=== PATIENT | male | born 1970 | race Two or more races ===

== ENCOUNTER 2016-10-25 23:38 | Observation (INO) | payer OTHER ==
[~2016-10-25] VITALS: Ht 175.3 cm; Wt 89.8 kg
--- NOTE | 2016-10-25 23:47 | NUR ---
DR OLIVER AT BEDSIDE FOR MSE
--- NOTE | 2016-10-25 23:47 | NUR ---
RECEIVED 46 Y/O M BIB [facility] FROM [facility] FOR EVAL OF CHEST PAIN STARTING AT 1800 LAST NIGHT; NON-PROVOKED, NON-RADIATING, SUB STERNAL CHEST TIGHTNESS AND RATES 6/10 AT THIS TIME. PT STATES FACE FEELS NUMB. RESP E/U AT THIS TIME, NAD NOTED. HOME AID AND PULSE OX IN PLACE.
--- NOTE | 2016-10-25 23:55 | NUR ---
NITRO PASTE APPLIED TO L UPPER CHEST ORDERED.
[2016-10-26] VITALS (7 sets, daily range): BP systolic 109–159; BP diastolic 72–98
--- NOTE | 2016-10-26 00:03 | NUR ---
AFTER NITRO ADMINISTRATION PT STATES PAIN IS "STARTING TO RELAX NOW". RATES 01/10.
--- NOTE | 2016-10-26 00:04 | NUR ---
CXR IN PROGRESS AT BEDSIDE.
[2016-10-26 00:10] LABS: BASOPHIL % 0.8 % (0-2); PLATELET COUNT 221 x10^3mcL (130-400)
[2016-10-26 00:12] LABS: RED CELL DISTRIBUTION WIDTH 16.4 % (11.5-14.5)
[2016-10-26 00:22] LABS: CALCIUM 8.3 mg/dL (8.5-10.1); CARBON DIOXIDE 27.8 mmol/L (21-32); CHLORIDE SERUM 105 mmol/L (98-107); CREATININE SERUM 1.1 mg/dL (0.7-1.3); GFR1 > 60 mL/min; GLUCOSE SERUM 140 mg/dL (74-106); POTASSIUM SERUM 3.8 mmol/L (3.5-5.1); SODIUM SERUM 141 mmol/L (136-145)
[2016-10-26 00:27] LABS: ALBUMIN 3.5 g/dL (3.4-5.0); ALKALINE PHOSPHATASE 79 U/L (46-116); ALT/SGPT 33 U/L (16-63); AST/SGOT 19 U/L (15-37); BILIRUBIN TOTAL 0.5 mg/dL (0.20-1.00); TOTAL PROTEIN, SERUM 6.8 g/dL (6.4-8.2)
[2016-10-26] MEDS ORDERED: CAL-GEST500 MG PO (01:23)
[2016-10-26] MEDS ORDERED: GOOD SENSE OMEP20 MG PO (01:24)
[2016-10-26] MEDS ORDERED: HYD25 PO (01:24)
[2016-10-26] MEDS ORDERED: LOPERAMIDE HCL2 MG PO (01:24)
[2016-10-26] MEDS ORDERED: BENTYL20 MG PO (01:24)
[2016-10-26] MEDS ORDERED: VASOTEC20 MG PO (01:25)
[2016-10-26] MEDS ORDERED: AMITRIPTYLINE H10 MG PO (01:25)
[2016-10-26] MEDS ORDERED: ASPIR 8181 MG PO (01:25)
[2016-10-26] MEDS ORDERED: CANASA1000 MG RC (01:25)
[2016-10-26] MEDS ORDERED: ATORVASTATIN CA40 M1 PO (01:25)
[2016-10-26] MEDS ORDERED: BUSPIRONE HCL15 MG PO (01:26)
--- NOTE | 2016-10-26 01:48 | NUR ---
REPORT GIVEN TO JARRET FOR FURTHER CARE OF PT.
[2016-10-26 02:16] LABS: T3 TOTAL 1.03 ng/mL
[2016-10-26 02:30] LABS: FREE T4 0.03 ng/dL (0.76-1.46); FREE THYROXINE INDEX 1.5 ug/dL (1.4-4.5); T4(THYROXINE) 2.6 ug/dL (4.7-13.3)
--- NOTE | 2016-10-26 02:45 | NUR ---
RECEIVED PT FROM ED VIA [facility] ACCOMPANIED BY RN. PT STATES REDUCED CHEST PAIN SINCE RECEIVING MEDICATION FROM ER. A&O X4. SHACKLES ON CASEY ANKLES AND RIGHT WRIST. SKIN AND CIRCULATION WNL. RESPIRATION EVEN AND UNLABORED ON ROOM AIR. OFFICERS AT BEDSIDE X2.
[2016-10-26 06:04] LABS: CHOLESTEROL/HDL RATIO 5.3; MAGNESIUM 2.1 mg/dL (1.8-2.4); PHOSPHOROUS 3.4 mg/dL (2.5-4.9)
--- NOTE | 2016-10-26 07:02 | NUR ---
PT SLEEPING. NO DISTRESS NOTED. SAFETY MEASURES IN PLACE. WILL ENDORSE CONTINUITY OF CARE TO DAY SHIFT RN.
--- NOTE | 2016-10-26 07:32 | NUR ---
PT SEEN REST ON BED AND READY FOR BREAKFAST. TWO GUARDS AT BED SIDE. PT REPORTED CHEST PAIN GETTING BETTER, WITHIN TOLERANCE. PT BREATHING ON RA, EVEN, UNLABORED. IV SITE PATENT, INTACT. IVF INFUSING WELL.
[2016-10-26 10:31] LABS: microscopic required? NO
[2016-10-26 11:01] LABS: AMPHETAMINE QUAL UR NONE DETECTED (NEG <=1000); UA SPECIFIC GRAVITY >=1.030 (1.005-1.035); urine erythrocyte NEGATIVE (NEGATIVE)
--- NOTE | 2016-10-26 18:16 | NUR ---
PT IS EATING DINNER, TWO GUARDS AT BED SIDE. PT NO COMPLAIN OF CHEST PAIN AT THIS TIME. OVERDAY, HE DIDN'T REQUEST PAIN MED FOR CHEST PAIN. PT BREATHING ON RA, EVEN, UNLABORED. IV SITE PATENT, INTACT. IVF INFUSING WELL.
--- NOTE | 2016-10-26 20:06 | NUR ---
PATIENT RECEIVED IN BED AWAKE,ALERT AND ORIENTED X4, SPEECH CLEAR DENIES CONSTANTINO NOR DIZZINESS.BREATHING EVEN AND UNLABORED, BS-CLEAR, ON ROOM AIR SAT 98%, DENIES CHEST PAINS, HR=72BPM, TELE#[id number], RHYTHM REGULAR. ABDOMEN SOFT NON DISTENDED ACTIV BS, PATIENT CLAIMED HX;ULCERATIVE COLITIS HAD LOOSE BM TODAY, APPETITE GOOD. VOIDING FREELY, DENIES PAIN UPON URINATION. 2 CIM OFFICER AT BEDSIDE. PATIENT INFORMED ABOUT PLAN OF CARE THIS TIME. SAFETY PRECAUTIONS MAINTAINED. WILL CONTINUE TO MONITOR.
--- NOTE | 2016-10-26 20:57 | NUR ---
SCHEDULED MEDS ADMINISTERED THIS TIME, PATIENT ALSO COMPLAINED OF ABDOMINAL AND BACK PAIN, MEDICATED PRN. MADE COMFORTABLE IN BED. WILL CHECK EFFECTIVENESS.
--- NOTE | 2016-10-26 21:20 | NUR ---
CHECKED EFFECTIVENESS OF PAIN MEDICATION PATIENT SLEEPING , EASILY AWAKEN STATED PAIN IS RESOLVED. NSR ON THE MONITOR. WILL CONTINUE TO MONITOR.
--- NOTE | 2016-10-27 | NUR ---
ROUNDS MADE PATIENT SLEEPING QUIETLY AND COMFORTABLY THIS TIME, NO DISTRESS NOTED, NSR ON THE MONITOR. 2CIM OFFICER AT BEDSIDE. SAFETY PRECAUTION MAINTAINED. WILL CONTINUE TO MONITOR.
[2016-10-27 05:58] VITALS: BP 129/91
[2016-10-27 06:01] LABS: BASOPHIL % 0.4 % (0-2); PLATELET COUNT 222 x10^3mcL (130-400)
[2016-10-27 06:41] LABS: RED CELL DISTRIBUTION WIDTH 16.4 % (11.5-14.5)
[2016-10-27 06:44] LABS: CALCIUM 8.5 mg/dL (8.5-10.1); CARBON DIOXIDE 28.4 mmol/L (21-32); CHLORIDE SERUM 103 mmol/L (98-107); CREATININE SERUM 1.1 mg/dL (0.7-1.3); GFR1 > 60 mL/min; GLUCOSE SERUM 104 mg/dL (74-106); POTASSIUM SERUM 3.9 mmol/L (3.5-5.1); SODIUM SERUM 139 mmol/L (136-145)
--- NOTE | 2016-10-27 07:02 | NUR ---
PATIENT STATED THIS AM HE HAD A RESTFUL NIGHT, HAD COMPLAINED OF ABDOMINAL AND BACK PAIN AND RECEIVED RELIEF. DENIES CHEST PAINS, NSR ON THE MONITOR. IV SITE NO SIGN OF INFILTRATION. SAFETY PRECAUTION MAINTAINED. WILL ENDORSE CONTINUITY OF CARE TO INCOMING NURSE.
--- NOTE | 2016-10-27 07:10 | NUR ---
PT SEEN REST ON BED WITH TWO GUARDS AT BED SIDE. PT NO COMPLAIN OF CHEST PAIN, BUT REPORTE STIFF NECK WITH MODERATE PAIN AT THIS TIME. PT BREATHING ON RA, EVEN, UNLABORED. IV SITE PATENT, INTACT. IVF INFUSING WELL.
--- NOTE | 2016-10-27 07:34 | NUR ---
BEDSIDE REPORT AND INTRODUCTION PERFORMED WITH INCOMING NURSE JONO-RN.
[2016-10-27 07:45] VITALS: BP 140/93
--- NOTE | 2016-10-27 08:35 | NUR ---
Nutrition Note Nursing Trigger "Admitted with potential risk diagnosis" received. Pt admitted with diagnosis of chest pain. Pt does not meet high risk criteria per nutrition care policy and standards. Pt will be screened as LOW risk and initial nutrition assessment due 11/02.
--- NOTE | 2016-10-27 11:24 | NUR ---
GOT LAB REPORT PT IS POSITIVE FOR MRSA NARES. CALLED AND MADE DR. COLEMAN AWARE. STARTED CONTACT ISOLATION.
[2016-10-27] MEDS ORDERED: BACO TOP (12:31)
[2016-10-27] MEDS ORDERED: HIBICLENS118 ML TOP (12:34)
[2016-10-27 13:44] VITALS: BP 131/94
[2016-10-27 15:27] VITALS: BP 131/94
--- NOTE | 2016-10-27 17:18 | NUR ---
DISCHARGE INSTRUCTION GIVEN. IV IS REMOVED. WAITING FOR RIDER.
== END 2016-10-27 18:58 | disposition other institution (70) | DRG 206 ==
LOC: ED 23:38 → DU 10-26 01:32
PROVIDERS: Emergency Medicine; ADMIT Family Medicine
DX: M94.0 Chondrocostal junction syndrome [Tietze] (principal); K51.90 Ulcerative colitis, unspecified, without complications; I10 Essential (primary) hypertension; E05.80 Other thyrotoxicosis without thyrotoxic crisis or storm; E78.5 Hyperlipidemia, unspecified; Z79.82 Long term (current) use of aspirin; Z68.29 Body mass index [BMI] 29.0-29.9, adult; M19.90 Unspecified osteoarthritis, unspecified site; Z85.038 Personal history of other malignant neoplasm of large intestine
CPT/HCPCS: 80307; 83880; 84439; G0378; J2270; J7030